=== PATIENT | female | born 1990 | race Caucasian/White ===

== ENCOUNTER 2017-01-16 10:52 | Emergency (ER) | payer BC ==
[2013-12-19 15:47] VITALS: BMI 30.1
[~2017-01-16 10:52] MED LIST: IBUPROFEN600 MG PO; PERCOCET 5-3251 TAB PO; PRENATAL COMPLE1 TAB PO
== END 2017-01-16 14:40 | disposition home or self-care (01) ==
LOC: D.ER 10:52
DX: S16.1XXA Strain of muscle, fascia and tendon at neck level, initial encounter (principal); V43.52XA Car driver injured in collision with other type car in traffic accident, initial encounter; Y93.89 Activity, other specified; Y92.410 Unspecified street and highway as the place of occurrence of the external cause

== ENCOUNTER 2017-08-08 08:09 | Emergency (ER) | payer MEDICAID ==
[2013-12-19 15:47] VITALS: BMI 30.1
== END 2017-08-08 09:00 | disposition home or self-care (01) ==
LOC: D.ER 08:09
DX: M26.609 Unspecified temporomandibular joint disorder, unspecified side (principal)

== ENCOUNTER 2017-10-07 08:32 | Emergency (ER) | payer MEDICAID ==
[~2017-10-07] VITALS: Ht 162.6 cm; Wt 68.2 kg
[2017-10-07 08:34] VITALS: Ht 162.6 cm; Wt 68.2 kg
[2017-10-07] MEDS ORDERED: HYDROCODONE-APA1 TAB PO (09:05)
[2017-10-07 09:14] VITALS: BP 132/88
== END 2017-10-07 09:14 | disposition home or self-care (01) ==
LOC: D.ER 08:32
DX: K02.9 Dental caries, unspecified (principal)

== ENCOUNTER 2017-12-11 09:09 | Emergency (ER) | payer MEDICAID ==
[~2017-12-11] VITALS: Ht 162.6 cm; Wt 67.3 kg
[~2017-12-11 09:09] MED LIST changes: +HYDROCODONE-APA1 TAB PO
[2017-12-11 09:30] VITALS: Ht 162.6 cm; Wt 67.3 kg
[2017-12-11] MEDS ORDERED: CLEOCIN HCL300 MG PO (09:46)
[2017-12-11] MEDS ORDERED: TYLENOL W/CODEI1 TAB PO (09:47)
[2017-12-11 09:56] VITALS: BP 122/078
== END 2017-12-11 10:04 | disposition home or self-care (01) ==
LOC: D.ER 09:09
DX: K08.409 Partial loss of teeth, unspecified cause, unspecified class (principal); T81.4XXA Infection following a procedure, initial encounter

== ENCOUNTER 2020-07-10 13:33 | Emergency (ER) | payer OTHER ==
[~2020-07-10] VITALS: Ht 162.6 cm; Wt 65.9 kg
[~2020-07-10 13:33] MED LIST changes: +CLEOCIN HCL300 MG PO; +TYLENOL W/CODEI1 TAB PO
[2020-07-10 13:40] VITALS: BP 128/87; Ht 162.6 cm; Wt 65.9 kg
[2020-07-10 16:35] LABS: SARS-CoV-2 ANTIGEN NEGATIVE- SARS-COV-2 (NEGATIVE)
[2020-07-10] MEDS ORDERED: MUCINEX600 MG PO (16:59)
[2020-07-10] MEDS ORDERED: ADVAIR HFA 45/212 GM INH (16:59)
[2020-07-10] MEDS ORDERED: ZPAK PO (16:59)
== END 2020-07-10 17:28 | disposition home or self-care (01) ==
LOC: D.ER 13:33
PROVIDERS: Emergency Medicine
DX: O99.511 Diseases of the respiratory system complicating pregnancy, first trimester (principal); Z3A.09 9 weeks gestation of pregnancy; R53.83 Other fatigue; J45.909 Unspecified asthma, uncomplicated